=== PATIENT | female | born 1950 ===

== ENCOUNTER 2024-09-16 07:53 | Outpatient (CLI) | payer MEDICARE, MEDICAID ==
[2024-09-16] VITALS (21 sets, daily range): BP systolic 115–147; BP diastolic 50–85; PULSE 66–75
== END 2024-09-16 23:59 | disposition home or self-care (01) ==
LOC: CARD DIAG 07:53
PROVIDERS: ATTEND Internal Medicine Cardiovascular Disease
DX: R55 Syncope and collapse (principal)
CPT/HCPCS: 93660